=== PATIENT | female | born 1970 | race Caucasian/White ===

== ENCOUNTER 2022-02-27 08:40 | Emergency (ER) | payer BC ==
--- NOTE | 2022-02-27 09:03 | ED Physician Documentation ---
PD HPI SKIN - Stated complaint Stated Complaint: ABSCESS - Chief complaint Chief Complaint: Wound - History obtained from History obtained from: Patient - History of Present Illness Timing - onset: How many days ago (2-3) Timing - duration: Days Timing - details: Abrupt onset, Still present Location: Abdomen Quality / character: Painful, Discolored (red), Swelling, Draining (was not draining initially and seen in Walk In, with I&D done, Rx Bactrim and given "shot of antibiotics" in clinic. Back to Walk In yesterday for packing change. She states still having redness and some drainage, but tender swelling persists below the I&D spot.) Associated symptoms: No: Fever, Myalgias, N/V/D Contributing factors: Unknown Recently seen: Clinic (Walk In clinic 2 days ago with I&D and yesterday with packing change.) PD PAST MEDICAL HISTORY - Allergies Allergies/Adverse Reactions: Allergies Allergy/AdvReac Type Severity Reaction Status Date / Time No Known Drug Allergies Allergy Verified 02/27/22 08:50 Results - Vitals Vitals: Vital Signs - 24 hr 02/27/22 02/27/22 08:48 13:38 Temperature 36.0 C L 36.5 C Heart Rate 88 80 Respiratory 16 16 Rate Blood Pressure 149/82 H 130/80 O2 Saturation 99 98 Oxygen O2 Source Room air - Labs Labs: Laboratory Tests 02/27/22 02/27/22 02/27/22 10:27 10:27 10:27 WBC 16.6 H RBC 4.40 Hgb 12.2 Hct 37.6 MCV 85.5 MCH 27.7 MCHC 32.4 RDW 15.2 H Plt Count 375 MPV 11.1 H Neut # (Auto) 13.3 H Lymph # (Auto) 1.6 Tensas # (Auto) 1.2 H Eos # (Auto) 0.2 Baso # (Auto) 0.1 Absolute Nucleated RBC 0.00 Nucleated RBC % 0.0 Sodium 140 Potassium 4.1 Chloride 105 Carbon Dioxide 24 Anion Gap 11.0 BUN 14 Creatinine 0.8 Estimated GFR (MDRD) 76 L Glucose 115 H Lactic Acid 0.9 Calcium 9.4 Total Bilirubin 0.5 AST 20 ALT 27 Alkaline Phosphatase 57 Total Creatine Kinase 42 Total Protein 7.7 Albumin 3.8 Globulin 3.9 Albumin/Globulin Ratio 1.0 Lipase 28 - Rads (name of study) abd/pelvic CT Radiology: Prelim report reviewed (induration soft tissue. Local fluid collection 2-3 cm size. ), See rad report Procedures - Abscess I&D (location) lower abd pannus Preparation: Lidocaine 1%, With epi, Other (confirmed with CT) Incision: Incised with scalpel, Purulent drainage Other: Pt tolerated well, Other (she was already on Bactrim for past 1 1/2 days. Given dose of Vanco here to supplement.) PD MEDICAL DECISION MAKING - ED course Complexity details: reviewed results (CT showing fluid collection about 2-3 cm near area of incision. ), re-evaluated patient (had persistent fluid collection so did second I&D and got purulence out separate area. ), considered differential (has abscess that is still draining and with persistent surround redness and tenderness. CT done and showed persistent fluid collection. Initial culture was showing Staph. by time of end of ER visit, sensitivity report out and sensitive to Bactrim and vanco.), d/w patient ED course: there is a lot of packing in the wound that was I&D'd. I removed it as I felt too much packing to allow drainage. More purulence out after packing removal. There is still area of firm/swelling below and midline of that, with CT showing persistent fluid collection, so second I&D done with more drainage. I believe with that as well as continued abx orally (since only on it for 1 1/2 days so far) the infection with improve from here. Departure - Departure Disposition: 01 Home, Self Care Clinical Impression: Abscess re-check Condition: Stable Record reviewed to determine appropriate education?: Yes Instructions: ED Abscess IandD Follow-Up: JUSTYNA CARR III, MD [Primary Care Provider] - Comments: Warm moist compresses or soaks to the area to help promote drainage further. Soft palpation around the incision sites to promote drainage periodically as well. The culture result actually did result just an hour or so ago showing methicillin-resistant staph aureus which is a likely expected because for an abscess like this. It did show sensitivity to sulfa medications like the one you are prescribed. We did give an added dose of IV antibiotic vancomycin here to help bolster that. We did an second drainage site to promote drainage that was still seen localized on the CT scan. The CT scan did not show any deep areas of abscess or inflammation. At this point I would continue with the previous antibiotic and see how it does over the next several days. Return if or follow-up with your primary care if persistent worsening or general symptoms such as fever vomiting etc. Discharge Date/Time: 02/27/22 13:38
--- OUTSIDE RECORDS SUMMARY | 2022-02-27 09:06 | EXTERNAL MEDICAL SUMMARY RPT | Continuity of Care Document ---
:1970 Author Organization [facility] Address [address] [place] [address] Phone Allergies No information. Encounters No information. Functional Status No information. Immunizations No information. Medications date description facility [phone]+0000 tramadol [facility] maverick [phone]+0000 propranolol [facility] [place]ick [id number]+0000 sulfamethoxazole-trimethoprim [facility] [place] [phone]+0000 tramadol [facility] [place] [phone]+0000 sulfamethoxazole-trimethoprim [facility] [phone]+0000 propranolol [facility] [place] Problems No information. Procedures date description facility [id number] Visit Code Hold [facility] [place] [phone]+0000 Visit Code Hold [facility] Results/Labs No information. Social History date description facility [phone]+0000 Never smoker [facility] [phone]+0000 Never smoker [facility] Vital Signs date measurement value units [id number]+0000 BMI BMI 39.52 kg/m2 [id number]+0000 BP_diastolic BP_diastolic 89 mm[H g] 28321764376303+0000 BP_systolic BP_systolic 146 mm[Hg] 95142089027339+0000 heart_rate heart_rate 114 /min 78048971187146+0000 height_metric height_metric 167.64 cm [id number]+0000 height_standard height_standard 66 in [id number]+0000 respiration_rate respiration_rate 16 /min [id number]+0000 temperature_metric temperature_metric 36.33 C [id number]+0000 temperature_standard temperature_standard 9 7.4 F [id number]+0000 weight_metric weight_metric 110.68 kg 19664574888315+0000 weight_standard weight_standard 244 lb 54550089700368+0000 BMI BMI 39.43 kg/m2 53830007029310+0000 BP_diastolic BP_diastolic 64 mm[H g] 28387127891977+0000 BP_systolic BP_systolic 108 mm[Hg] 23412388582725+0000 heart_rate heart_rate 88 /min 20968781198987+0000 height_metric height_metric 167.64 cm 70439853894011+0000 height_standard height_standard 66 in 86445387611808+0000 respiration_rate respiration_rate 16 /min 40831940633493+0000 temperature_metric temperature_metric 37.17 C [id number]+0000 temperature_standard temperature_standard 9 8.9 F [id number]+0000 weight_metric weight_metric 110.4 kg [id number]+0000 weight_standard weight_standard 243.4 lb
[2022-02-27] MEDS ORDERED: VANCOMYCIN INJ 1.25 GM in SODIUM CHLORIDE 0.9% 250 ML IV STA (10:08)
--- NOTE | 2022-02-27 10:39 | CT Report ---
PROCEDURE: Abdomen/Pelvis WO INDICATIONS: lower abd abscess worsening TECHNIQUE: Noncontrast 5 mm thick sections acquired from the diaphragms to the symphysis. 5 mm coronal and sagi ttal reformats were then performed. For radiation dose reduction, the following was used: automated exposure control, adjustment of mA and/or kV according to patient size. COMPARISON: None. FINDINGS: Image quality: Excellent. ABDOMEN: Lung bases: Lung bases are clear. Heart size is normal. Solid organs: Diffuse fatty liver infiltration can be seen. The liver demonstrates normal size and demonstrates no focal lesions. The spleen demonstrates normal size and demonstrates no suspicious les ions. Gallbladder wall does not appear thickened. Pancreas is normal in contours. No adrenal nod ules. Kidneys are normal in size, without hydronephrosis or nephrolithiasis. Peritoneum and bowel: Unenhanced bowel loops demonstrate normal wall thickness and caliber. No free fluid or air. Nodes and vessels: No retroperitoneal or mesenteric adenopathy by size criteria. Aorta and inferior vena cava are normal in caliber. Miscellaneous: No ventral hernias. PELVIS: Genitourinary: Bladder wall thickness is normal. The uterus demonstrates an unremarkable appearance for age. No adnexal masses are seen. Miscellaneous: No inguinal hernias or adenopathy. However, borderline prominent groin lymph nodes c an be seen. Within the anterior wall of the pelvis, there is a focal collection of fluid and gas seen on the righ t. The pocket of fluid measures up to 2 cm, as seen on series 3 image 94 and on series 6 image 18. Th ere is a connection to the skin. Generalized soft tissue cellulitis can be seen. Bones: No suspiciou s bony lesions. No vertebral body compression fractures. IMPRESSION: Partially decompressed soft tissue abscess seen involving the anterior right pelvic wall, with surrou nding cellulitis. Associated borderline prominent groin lymph nodes can be seen. Incidental note is made of: Fatty liver infiltration Reviewed by: James Millard MD on 02/27/2022 9:37 AM RADHA Approved by: James Millard MD on 02/27/2022 9:37 AM RADHA Station ID: [id number]
[2022-02-27 10:40] LABS: BASOPHILS # (AUTO) 0.1 10^3/uL (0.0-0.1); BASOPHILS % (AUTO) 0.5 %; EOSINOPHILS # (AUTO) 0.2 10^3/uL (0.0-0.7); EOSINOPHILS % (AUTO) 1.3 %; HCT - HEMATOCRIT 37.6 % (37.0-47.0); HGB - HEMOGLOBIN 12.2 g/dL (12.0-16.0); LYMPHOCYTES # (AUTO) 1.6 10^3/uL (1.5-3.5); LYMPHOCYTES % (AUTO) 9.6 %; MEAN CORPUSCULAR HEMOGLOBIN 27.7 pg (27.0-31.0); MEAN CORPUSCULAR HGB CONC 32.4 g/dL (32.0-36.0); MEAN CORPUSCULAR VOLUME 85.5 fL (81.0-99.0); MEAN PLATELET VOLUME 11.1 fL (7.9-10.8); MONOCYTES # (AUTO) 1.2 10^3/uL (0.0-1.0); MONOCYTES % (AUTO) 7.2 %; NEUTROPHILS # (AUTO) 13.3 10^3/uL (1.5-6.6); PLT - PLATELET COUNT 375 10^3/uL (130-450); RED CELL DISTRIBUTION WIDTH 15.2 % (12.0-15.0); WHITE BLOOD COUNT 16.6 x10^3/uL (4.8-10.8)
[2022-02-27 10:47] LABS: ALBUMIN 3.8 g/dL (3.2-5.5); BILIRUBIN,TOTAL 0.5 mg/dL (0.2-1.0); CALCIUM 9.4 mg/dL (8.5-10.3); CREATININE 0.8 mg/dL (0.4-1.0); POTASSIUM 4.1 mmol/L (3.5-5.0); TOTAL PROTEIN 7.7 g/dL (6.7-8.2)
[2022-02-27 13:40] VITALS: BP 130/80
== END 2022-02-27 13:38 | disposition home or self-care (01) ==
LOC: ED 08:40
DX: T81.49XA Infection following a procedure, other surgical site, initial encounter (principal)
CPT/HCPCS: 10060; 36415; 74176; 80053; 82550; 83605; 83690; 85025; 96365; 96366; 99283; 99284; J3370